=== PATIENT | female | born 1975 | race Caucasian/White ===

== ENCOUNTER 2022-06-10 18:18 | Emergency (ER) | payer OTHER, BC, SELFPAY ==
[2022-06-10 18:30] VITALS: BP 139/85; PULSE 95; RESP 18; TEMP 36.7; O2SAT 98; BMI 27.3
== END 2022-06-10 20:00 | disposition left against medical advice (07) ==
PROVIDERS: Emergency Provider Emergency Medicine
CPT/HCPCS: 99281